=== PATIENT | female | born 1985 | race Caucasian/White ===

== ENCOUNTER 2017-11-01 11:47 | Inpatient (IN) | payer MEDICAID ==
[~2017-11-01] VITALS: Ht 167.6 cm; Wt 66.5 kg
[~2017-11-01 11:47] MED LIST: IBUP-1051 PO; ONDA8TAB9 PO; PARO10TA4 CORPAK
[2017-11-01] MEDS ORDERED: acetaminophen 325mg tablet PO ONE (12:20)
[2017-11-01 12:50] LABS: URINE HCG NEGATIVE (NEG)
[2017-11-01 12:50] LABS: BASOPHILS % (AUTO) 0.1 % (0-1); EOSINOPHILS % (AUTO) 0 % (0-6); HEMATOCRIT 40.2 % (35.0-45.0); HEMOGLOBIN 14.2 g/dl (12.0-16.0); LYMPHOCYTES # (AUTO) 1.1 X10'3 (1.1-4.8); LYMPHOCYTES % (AUTO) 4.2 % (21-51); MEAN CORPUSCULAR HEMOGLOBIN 31.1 PG (27.0-31.0); MEAN CORPUSCULAR HGB CONC 35.2 % (33.0-36.5); MEAN CORPUSCULAR VOLUME 88.3 FL (78-98); MEAN PLATELET VOLUME 8.8 FL (7.4-10.4); MONOCYTES # (AUTO) 1.4 X10'3 (0-0.9); MONOCYTES % (AUTO) 5.2 % (2-12); NEUTROPHILS % (AUTO) 90.5 % (42-75); PLATELET COUNT 198 X10'3 (140-440); RED BLOOD COUNT 4.56 X10'6 (4.20-5.60); RED CELL DISTRIBUTION WIDTH 13.4 % (11.5-14.5)
[2017-11-01 12:51] LABS: CLARITY,URINE Clear (Clear); COLOR,URINE Yellow (Yellow); GLUCOSE, URINE Negative (Neg); KETONES,URINE 40 mg/dl (Neg); LEUKOCYTE ESTERASE ,URINE Trace (Neg); NITRITES, URINE Negative (Neg); OCCULT BLOOD,URINE Small (Neg); PH,URINE 5.5 (4.8-8.0); PROTEIN,URINE 30 mg/dl (Neg)
[2017-11-01 12:52] LABS: WHITE BLOOD COUNT 26.5 X10'3 (4.5-11.0)
[2017-11-01 12:54] LABS: INR 1.1 INR; PROTHROMBIN TIME 11.6 SECONDS (9.0-12.0)
[2017-11-01 12:54] LABS: UA COLLECTION TYPE CLN CATCH MIDSTREAM
[2017-11-01 13:01] LABS: ALANINE AMINOTRANSFERASE 13 U/L (12-78); ALBUMIN 3.6 G/DL (3.4-5.0); ALBUMIN/GLOBULIN RATIO 0.9 (1.1-1.5); ALKALINE PHOSPHATASE 86 IU/L (46-116); ANION GAP 15 (8-16); ASPARTATE AMINO TRANSFERASE 13 U/L (10-37); BILIRUBIN,TOTAL 1.7 MG/DL (0.1-1.0); BLOOD UREA NITROGEN 12 MG/DL (7-18); BUN/CREATININE RATIO 12.9 (6.6-38.0); CALCIUM 8.8 MG/DL (8.5-10.1); CHLORIDE 100 MMOL/L (99-107); CREATININE 0.93 MG/DL (0.40-0.90); GLUCOSE 119 MG/DL (70-104); POTASSIUM 3.1 MMOL/L (3.5-5.1); SODIUM 140 MMOL/L (135-145); TOTAL CARBON DIOXIDE 24.8 MMOL/L (24-32); TOTAL PROTEIN 7.7 G/DL (6.4-8.2); eGFR 70 ML/MIN
[2017-11-01 13:05] LABS: BACTERIA,URINE FEW /HPF (Neg); HYALINE CASTS 0-3 /LPF (NEGATIVE); MUCUS STRANDS MANY /LPF (Neg); RENAL CELLS, URINE FEW /HPF; SQUAMOUS EPITHELIAL CELL,UR FEW /LPF (FEW); TRANSITIONAL EPI CELLS,URINE FEW /HPF; WBC CLUMPS,URINE FEW /HPF (NEGATIVE)
[2017-11-01 13:06] LABS: CELLULAR CAST 0-4 /LPF (NEGATIVE)
[2017-11-01] MEDS ORDERED: normal saline 1000ML IV soln IVB ONE (13:10)
[2017-11-01] MEDS ORDERED: ondansetron/PF 4mg/2ml inj IV ONE (13:10)
[2017-11-01] MEDS ORDERED: CefTRIAXone 2gm/NS 100ml IVPB 100 ML IV ONE (13:10)
[2017-11-01] MEDS: diatr meglu/diatrizoate 30ml oral sol.-(3 dose) bottle PO SCH ×3 (13:38→14:50)
[2017-11-01 13:47] LABS: BANDS% (MANUAL) 2 % (0-10); LYMPHOCYTES % (MANUAL) 4 % (21-51); MONOCYTES % (MANUAL) 4 % (2-12); NEUTROPHILS % (MANUAL) 90 % (42-75); TOTAL CELLS COUNTED 100
[2017-11-01 13:48] LABS: LARGE PLATELETS FEW; PLATELET ESTIMATE NORMAL
[2017-11-01 13:49] LABS: TOXIC GRANULATION 1+; TOXIC VACUOLATION 2+
[2017-11-01] MEDS ORDERED: iohexol 300mg/ml 100ml inj. ONE (13:55)
[2017-11-01] MEDS ORDERED: morphine 4 MG/ML inj SYRINge IV ONE (14:00)
[2017-11-01] MEDS ORDERED: diphenhydrAMINE 50 mg/ml inj IV ONE (14:15)
[2017-11-01] MEDS ORDERED: HYDROmorphone 1 mg/ml syringe IV ONE (15:25)
[2017-11-01] MEDS ORDERED: HYDROmorphone inj. 0.5 MG/0.5 ML DISP.SYRIN IV ONE ×2 (15:25→17:25)
[2017-11-01] MEDS ORDERED: NO HOME MEDS (15:39)
[2017-11-01 16:12] LABS: C-REACTIVE PROTEIN 22.81 MG/DL (0.0-0.5)
[2017-11-01] MEDS ORDERED: ondansetron/PF 4mg/2ml inj IV PRN (17:35)
[2017-11-01] MEDS ORDERED: potassium Cl 20 mEq SR tablet PO PRN (17:35)
[2017-11-01] MEDS ORDERED: magnesium 4gm in 100ml NS 100 ML IV PRN (17:35)
[2017-11-01] MEDS ORDERED: magnesium Cl slow-release 64mg tablet PO PRN (17:35)
[2017-11-01] MEDS ORDERED: magnesium 2GM in 50ml NS 50 ML IV PRN (17:35)
[2017-11-01] MEDS ORDERED: mag hydrox/Alum hydrox/simeth 30ml oral suspension PO PRN (17:35)
[2017-11-01] MEDS ORDERED: acetaminophen 325mg tablet PO PRN ×2 (17:35)
[2017-11-01] MEDS ORDERED: potassium Cl 40MEQ/NS 500ml 500 ML IV PRN ×2 (17:35)
[2017-11-01] MEDS ORDERED: HYDROcodone/acetaminophen 5mg/325mg tablet PO PRN (17:35)
[2017-11-01] MEDS ORDERED: magnesium hydroxide 30ml (MOM) UD suspension PO PRN (17:35)
[2017-11-01] MEDS: normal saline 1000ml 1,000 ML IV SCH (18:01)
[2017-11-01] MEDS: levoFLOXACIN-Levaquin 500mg/D5 100 ML IV SCH (18:01)
[2017-11-01] MEDS: HYDROcodone/acetaminophen 10/325mg tab PO PRN (20:01)
[2017-11-01] MEDS ORDERED: HYDROmorphone 1 mg/ml syringe IV PRN (20:15)
[2017-11-01] MEDS: HYDROmorphone inj. 0.5 MG/0.5 ML DISP.SYRIN IV PRN (20:31)
[2017-11-01] MEDS ORDERED: temazepam 15mg capsule PO PRN (21:00)
[2017-11-01 22:05] VITALS: BP 99/54
[2017-11-02] VITALS: BP 97/52
[2017-11-02] MEDS: HYDROmorphone inj. 0.5 MG/0.5 ML DISP.SYRIN IV PRN ×3 (01:28→10:54)
[2017-11-02] MEDS: HYDROcodone/acetaminophen 10/325mg tab PO PRN ×4 (04:16→18:02)
[2017-11-02] MEDS: normal saline 1000ml 1,000 ML IV SCH ×2 (04:18→18:03)
[2017-11-02 05:22] LABS: BASOPHILS % (AUTO) 0.3 % (0-1); EOSINOPHILS # (AUTO) 0.2 X10'3 (0-0.9); EOSINOPHILS % (AUTO) 1.4 % (0-6); HEMOGLOBIN 10.9 g/dl (12.0-16.0); LYMPHOCYTES # (AUTO) 1.8 X10'3 (1.1-4.8); MEAN CORPUSCULAR HEMOGLOBIN 31.1 PG (27.0-31.0); MEAN CORPUSCULAR HGB CONC 35.1 % (33.0-36.5); MEAN CORPUSCULAR VOLUME 88.6 FL (78-98); MEAN PLATELET VOLUME 9.3 FL (7.4-10.4); MONOCYTES # (AUTO) 1.5 X10'3 (0-0.9); MONOCYTES % (AUTO) 9.1 % (2-12); NEUTROPHILS % (AUTO) 78.2 % (42-75); PLATELET COUNT 135 X10'3 (140-440); RED CELL DISTRIBUTION WIDTH 13.1 % (11.5-14.5); WHITE BLOOD COUNT 16.6 X10'3 (4.5-11.0)
[2017-11-02 05:32] LABS: ALANINE AMINOTRANSFERASE 18 U/L (12-78); ALBUMIN 2.5 G/DL (3.4-5.0); ALBUMIN/GLOBULIN RATIO 0.8 (1.1-1.5); ALKALINE PHOSPHATASE 67 IU/L (46-116); ANION GAP 7 (8-16); ASPARTATE AMINO TRANSFERASE 12 U/L (10-37); BILIRUBIN,TOTAL 0.9 MG/DL (0.1-1.0); CALCIUM 7.6 MG/DL (8.5-10.1); CHLORIDE 105 MMOL/L (99-107); CREATININE 0.82 MG/DL (0.40-0.90); GLUCOSE 120 MG/DL (70-104); MAGNESIUM 1.6 MG/DL (1.5-2.4); POTASSIUM 3.2 MMOL/L (3.5-5.1); SODIUM 138 MMOL/L (135-145); TOTAL CARBON DIOXIDE 25.6 MMOL/L (24-32); TOTAL PROTEIN 5.6 G/DL (6.4-8.2); eGFR 81 ML/MIN
[2017-11-02 05:56] LABS: BLOOD UREA NITROGEN 9 MG/DL (7-18)
[2017-11-02] MEDS ORDERED: FLU VACC QS2017-18 36MOS UP/PF 60 MCG/0.5 ML SYRINGE IMVAC ONE (06:45)
[2017-11-02 07:00] VITALS: BP 95/47
[2017-11-02] MEDS: lactobacillus rhamnosus 10,000 MMU CELLS/CAPSULE PO SCH ×2 (07:47→17:14)
[2017-11-02] MEDS: potassium Cl 20 mEq SR tablet PO PRN ×2 (07:47→17:14)
[2017-11-02] MEDS: levoFLOXACIN-Levaquin 500mg/D5 100 ML IV SCH (07:48)
[2017-11-02] MEDS: K and/or MAG REPLACEMENT MC SCH (07:52)
[2017-11-02] MEDS: enoxaparin 40mg/0.4ml syringe SUBCUT SCH (08:01)
[2017-11-02 11:00] VITALS: BP_SYST 95; BP_SYST 97; BP_DIAS 45; BP_DIAS 47
[2017-11-02 21:26] VITALS: BP 103/58
[2017-11-03] VITALS: BP 111/54
[2017-11-03] MEDS: normal saline 1000ml 1,000 ML IV SCH (01:52)
[2017-11-03] MEDS: HYDROcodone/acetaminophen 10/325mg tab PO PRN ×2 (01:54→08:08)
[2017-11-03 05:27] LABS: BASOPHILS % (AUTO) 0.1 % (0-1); EOSINOPHILS # (AUTO) 0.1 X10'3 (0-0.9); EOSINOPHILS % (AUTO) 0.9 % (0-6); HEMATOCRIT 30.9 % (35.0-45.0); HEMOGLOBIN 10.7 g/dl (12.0-16.0); LYMPHOCYTES # (AUTO) 2.4 X10'3 (1.1-4.8); LYMPHOCYTES % (AUTO) 17.7 % (21-51); MEAN CORPUSCULAR HGB CONC 34.5 % (33.0-36.5); MEAN CORPUSCULAR VOLUME 89.6 FL (78-98); MEAN PLATELET VOLUME 8.9 FL (7.4-10.4); MONOCYTES # (AUTO) 1.3 X10'3 (0-0.9); MONOCYTES % (AUTO) 9.3 % (2-12); NEUTROPHILS # (AUTO) 9.7 X10'3 (1.8-7.7); PLATELET COUNT 154 X10'3 (140-440); RED BLOOD COUNT 3.44 X10'6 (4.20-5.60); RED CELL DISTRIBUTION WIDTH 13.4 % (11.5-14.5); WHITE BLOOD COUNT 13.5 X10'3 (4.5-11.0)
[2017-11-03 05:32] LABS: ALANINE AMINOTRANSFERASE 15 U/L (12-78); ALBUMIN 2.3 G/DL (3.4-5.0); ALBUMIN/GLOBULIN RATIO 0.7 (1.1-1.5); ALKALINE PHOSPHATASE 75 IU/L (46-116); ANION GAP 9 (8-16); ASPARTATE AMINO TRANSFERASE 12 U/L (10-37); BILIRUBIN,TOTAL 0.6 MG/DL (0.1-1.0); BLOOD UREA NITROGEN 5 MG/DL (7-18); BUN/CREATININE RATIO 7.8 (6.6-38.0); CALCIUM 8.1 MG/DL (8.5-10.1); CHLORIDE 110 MMOL/L (99-107); CREATININE 0.64 MG/DL (0.40-0.90); GLUCOSE 100 MG/DL (70-104); MAGNESIUM 1.7 MG/DL (1.5-2.4); POTASSIUM 3.7 MMOL/L (3.5-5.1); SODIUM 142 MMOL/L (135-145); TOTAL CARBON DIOXIDE 23.5 MMOL/L (24-32); TOTAL PROTEIN 5.7 G/DL (6.4-8.2); eGFR > 90 ML/MIN
[2017-11-03] MEDS: K and/or MAG REPLACEMENT MC SCH (07:50)
[2017-11-03] MEDS: lactobacillus rhamnosus 10,000 MMU CELLS/CAPSULE PO SCH (07:57)
[2017-11-03] MEDS: levoFLOXACIN-Levaquin 500mg/D5 100 ML IV SCH (07:58)
[2017-11-03] MEDS: enoxaparin 40mg/0.4ml syringe SUBCUT SCH (07:58)
[2017-11-03] MEDS ORDERED: LEVO500T2 PO (09:21)
== END 2017-11-03 14:12 | disposition home or self-care (01) | DRG 720 ==
LOC: ER 11:47 → ED HOLD 17:31 → SUR 3N 22:00 → CMPBEDREQ 22:09 → SUR 3N 11-03 09:10
PROVIDERS: ADMIT Family Medicine; ATTEND Family Medicine
DX: A41.9 Sepsis, unspecified organism (principal); N17.9 Acute kidney failure, unspecified; N28.0 Ischemia and infarction of kidney; N10 Acute pyelonephritis; E87.6 Hypokalemia; N73.9 Female pelvic inflammatory disease, unspecified; N83.201 Unspecified ovarian cyst, right side; Z88.1 Allergy status to other antibiotic agents; Z88.6 Allergy status to analgesic agent
CPT/HCPCS: 36415; 74177; 76856; 80053; 81001; 81025; 83605; 83735; 85025; 85610; 85651; 86140; 87040; 87070; 87088; 93975; 96365; 96375; 96376; 99285; J0696; J1170; J1200; J1650; J1956; J2270; J2405; J7030; Q2037; Q9963; Q9967

== ENCOUNTER 2018-02-14 03:15 | Emergency (ER) | payer MEDICAID ==
[~2018-02-14] VITALS: Ht 167.6 cm; Wt 68.2 kg
[2018-02-14] MEDS ORDERED: CEPH500C5 PO (04:10)
[2018-02-14] MEDS ORDERED: SULF1TAB49 PO (04:10)
[2018-02-14] MEDS ORDERED: BACI1PAC7 TP (04:10)
[2018-02-14 04:32] VITALS: BP 129/71
== END 2018-02-14 04:35 | disposition home or self-care (01) ==
LOC: ER 03:16
DX: T20.56XA Corrosion of first degree of forehead and cheek, initial encounter (principal); L03.115 Cellulitis of right lower limb; Z88.1 Allergy status to other antibiotic agents; Z88.5 Allergy status to narcotic agent; Z79.899 Other long term (current) drug therapy; Y93.89 Activity, other specified; Y92.89 Other specified places as the place of occurrence of the external cause; Y99.8 Other external cause status
CPT/HCPCS: 99283